=== PATIENT | female | born 1970 | race Caucasian/White ===

== ENCOUNTER 2016-12-22 15:17 | Inpatient (IN) | payer MEDICAID ==
[~2016-12-22] VITALS: Ht 160 cm; Wt 99.0 kg
[2016-12-22 15:20] VITALS: Ht 160 cm; Wt 99.0 kg
[2016-12-22 17:23] LABS: BASOPHILS % 0.1 % (0.0-2.0); EOSINOPHILS # 0.2 10^3/ul (0.0-0.5); EOSINOPHILS % 1.6 % (0.0-7.0); HEMATOCRIT 25.8 % (37.0-47.0); HEMOGLOBIN 7.6 g/dl (12.0-16.0); LYMPHOCYTES # 2.4 10^3/ul (0.8-2.9); LYMPHOCYTES % 22.6 % (15.0-51.0); MEAN CORPUSCULAR HEMOGLOBIN 21.8 pg (29.0-33.0); MEAN CORPUSCULAR HGB CONC 29.5 g/dl (32.0-37.0); MEAN CORPUSCULAR VOLUME 73.9 fl (82.0-101.0); MEAN PLATELET VOLUME 9.4 fl (7.4-10.4); MONOCYTE # 0.5 10^3/ul (0.3-0.9); MONOCYTES % 4.9 % (0.0-11.0); NEUTROPHIL # 7.3 10^3/ul (1.6-7.5); NEUTROPHILS % 70.1 % (39.0-77.0); NUCLEATED RED BLOOD CELLS% 0.2 /100WBC (0.0-0.0); PLATELET COUNT 370 10^3/UL (140-415); RED BLOOD COUNT 3.49 10^6/ul (4.20-5.40); RED CELL DISTRIBUTION WIDTH 16.6 % (11.5-14.5); WHITE BLOOD COUNT 10.4 10^3/ul (4.8-10.8)
--- NOTE | 2016-12-22 17:33 | RADRPT ---
PROCEDURE: US Pelvis CLINICAL INDICATION: Pelvic pain, vaginal bleeding TECHNIQUE: Multiple sonographic images of the pelvis were obtained utilizing a transabdominal and endovaginal technique. The images were reviewed on a PACS workstation. COMPARISON: None. LMP: 10/17/2016 FINDINGS: The uterus measures 12.7 x 6.1 x 9.0 cm. The endometrial echo complex measures 9 mm in thickness. The uterus is heterogeneous and the junctional zone between the endometrium and myometrium is indist inct. No discrete lesion is seen. Bilateral ovaries are not visualized. There are no abnormal adnexal masses. No significant pelvic free fluid is identified. IMPRESSION: The uterus is heterogeneous and the junctional zone between the endometrium and myometrium is indist inct. Clinical correlation for adenomyosis is recommended. Bilateral ovaries are not visualized. There are no abnormal adnexal masses. RPTAT: EE Physician Alexis Date Time Electronically viewed and signed by Physician Alexis on 12/22/2016 17:33 /
[2016-12-22 17:42] LABS: ADD UMIC YES; UR ASCORBIC ACID 40 mg/dL (NEGATIVE); UR BILIRUBIN (Dip) NEGATIVE (NEGATIVE); UR BLOOD (Dip) 3+ mg/dL (NEGATIVE); UR CLARITY SLIGHTLY CLOUDY (CLEAR); UR COLOR YELLOW (YELLOW); UR GLUCOSE (Dip) NEGATIVE (NEGATIVE); UR KETONES (Dip) NEGATIVE (NEGATIVE); UR LEUKOCYTE ESTERASE (Dip) NEGATIVE Leu/ul (NEGATIVE); UR MUCUS FEW /HPF (NONE SEEN); UR NITRITE (Dip) NEGATIVE (NEGATIVE); UR RBC > 182 /HPF (0-5); UR SPECIFIC GRAVITY (Dip) 1.023 (1.003-1.030); UR SQUAMOUS EPITHELIAL CELL FEW /HPF (FEW); UR TOTAL PROTEIN (Dip) 2+ mg/dl (NEGATIVE); UR UROBILINOGEN (Dip) NEGATIVE (NEGATIVE)
[2016-12-22 17:48] LABS: ALBUMIN 4.4 g/dl (3.3-4.9); ALBUMIN/GLOBULIN RATIO 1.29; CALCIUM 9.1 mg/dl (8.4-10.2); CREATININE 0.64 mg/dl (0.44-1.00); POTASSIUM 3.7 mmol/L (3.5-5.1); TOTAL PROTEIN 7.8 g/dl (6.1-8.1)
[2016-12-22] MEDS ORDERED: SOD CHLORIDE 0.9% 1,000 ML IV ONE (19:00)
[2016-12-22] MEDS ORDERED: ACETAMINOPHEN 325 MG TAB PO ONE (19:30)
--- NOTE | 2016-12-22 19:36 | ERD ---
ER Documentation Chief Complaint Chief Complaint vag bleed since september, not HPI This is a 46-year-old female presents to the ER with vaginal bleeding since September. Patient went to [facility] on December 07, 2016 and was put on progesterone. She is also taking iron as she was found to have anemia at that time. Patient is using about 1 package of pads a day, and when she goes out she has to use a tampon and pad, often times having to change her clothes secondary to severe bleeding. Is starting to feel fatigued and weak. ROS 12 point review of systems was done, all negative except per HPI. Allergies Allergies: Coded Allergies: No Known Allergy (Verified Allergy, Unknown, 09/02/09) PMhx/Soc Medical and Surgical Hx: pt denies Medical Hx, pt denies Surgical Hx Physical Exam Vitals Vital Signs Date Time Temp Pulse Resp B/P Pulse Ox O2 Delivery O2 Flow Rate FiO2 12/22/16 15:20 99.1 96 18 154/71 100 Physical Exam GENERAL: The patient is well developed and appropriate for usual state of health , in no apparent distress. HEENT: Atraumatic. CHEST: Clear to auscultation bilaterally. There are no rales, wheezes or rhonchi. HEART: Regular rate and rhythm. No murmurs, clicks, rubs or gallops. ABDOMEN: Soft, nontender and nondistended. Good bowel sounds. No rebound or guarding. No gross peritonitis. No gross organomegaly or masses. No Donohue sign or McBurney point tenderness. NEURO: Alert and oriented. SKIN: There is no apparent rash or petechia. The skin is warm and dry. Result Diagram: 12/22/16 1700 12/22/16 170 Results 24 hrs Laboratory Tests Test 12/22/16 17:00 White Blood Count 10.410^3/ul Red Blood Count 3.4910^6/ul Hemoglobin 7.6g/dl Hematocrit 25.8% Mean Corpuscular Volume 73.9fl Mean Corpuscular Hemoglobin 21.8pg Mean Corpuscular Hemoglobin Concent 29.5g/dl Red Cell Distribution Width 16.6% Platelet Count 19638^3/UL Mean Platelet Volume 9.4fl Neutrophils % 70.1% Lymphocytes % 22.6% Monocytes % 4.9% Eosinophils % 1.6% Basophils % 0.1% Nucleated Red Blood Cells % 0.2/100WBC Neutrophils # 7.310^3/ul Lymphocytes # 2.410^3/ul Monocytes # 0.510^3/ul Eosinophils # 0.210^3/ul Basophils # 0.010^3/ul Nucleated Red Blood Cells # 0.010^3/ul Urine Color YELLOW Urine Clarity SLIGHTLY CLOUDY Urine pH 5.0 Urine Specific [place] 1.023 Urine Ketones NEGATIVEmg/dL Urine Nitrite NEGATIVEmg/dL Urine Bilirubin NEGATIVEmg/dL Urine Urobilinogen NEGATIVEmg/dL Urine Leukocyte Esterase NEGATIVELeu/ul Urine Microscopic RBC > 182/HPF Urine Microscopic WBC 25/HPF Urine Squamous Epithelial Cells FEW/HPF Urine Mucus FEW/HPF Urine Hemoglobin 3+mg/dL Urine Glucose NEGATIVEmg/dL Urine Total Protein 2+mg/dl Sodium Level 144mmol/L Potassium Level 3.7mmol/L Chloride Level 108mmol/L Carbon Dioxide Level 25mmol/L Anion Gap 15 Blood Urea Nitrogen 10mg/dl Creatinine 0.64mg/dl Glucose Level 133mg/dl Calcium Level 9.1mg/dl Total Bilirubin 0.0mg/dl Direct Bilirubin 0.00mg/dl Indirect Bilirubin 0.0mg/dl Aspartate Amino Transf (AST/SGOT) 21IU/L Alanine Aminotransferase (ALT/SGPT) 39IU/L Alkaline Phosphatase 92IU/L Total Protein 7.8g/dl Albumin 4.4g/dl Globulin 3.40g/dl Albumin/Globulin Ratio 1.29 Current Medications Medications (Trade) Dose Ordered Sig/Madelin Route PRN Reason Start Time Stop Time Status Last Admin Dose Admin Sodium Chloride (NS) 1,000 ml @ 1,000 mls/hr Q1H ONCE IV 12/22/16 19:00 12/22/16 19:59 12/22/16 18:53 Acetaminophen (Tylenol Tab) 650 mg ONCE ONCE PO 12/22/16 19:30 12/22/16 19:31 DC 12/22/16 19:31 [place] [id number] Radiology Main Line: [phone] DIAGNOSTIC IMAGING REPORT Patient: AMANDA RAMIREZ : 1970 Age: 46 Sex: F MR #: [id number] DOS: 12/22/16 0000 Ordering MD: TONY HERRERA PA-C Location: [facility] Room/Bed: PROCEDURE: US Pelvis CLINICAL INDICATION: Pelvic pain, vaginal bleeding TECHNIQUE: Multiple sonographic images of the pelvis were obtained utilizing a transabdominal and endovaginal technique. The images were reviewed on a PACS workstation. COMPARISON: None. LMP: 10/17/2016 FINDINGS: The uterus measures 12.7 x 6.1 x 9.0 cm. The endometrial echo complex measures 9 mm in thickness. The uterus is heterogeneous and the junctional zone between the endometrium and myometrium is indistinct. No discrete lesion is seen. Bilateral ovaries are not visualized. There are no abnormal adnexal masses. No significant pelvic free fluid is identified. IMPRESSION: The uterus is heterogeneous and the junctional zone between the endometrium and myometrium is indistinct. Clinical correlation for adenomyosis is recommended. Bilateral ovaries are not visualized. There are no abnormal adnexal masses. RPTAT: EE Physician Alexis Date Time Electronically viewed and signed by Physician Alexis on 12/22/2016 17:33 RA/ CC: TONY HERRERA Procedures/MDM This is a 46-year-old female presents to the ER with vaginal bleeding since September. This case was discussed with my supervising physician Dr. Daley. Patient's hemoglobin is 7.6, which is very close to transfusion, considering patient does feel weak and has continued to have bleeding even with pedestrian use, will Laborist crushed stone grader was consulted. Per Dr. Mario patient would benefit from admission for D&C. Departure Diagnosis: Primary Impression: Vaginal bleeding Additional Impression: Anemia Condition: Stable TONY HERRERA Dec 22, 2016 19:36
[2016-12-22] MEDS ORDERED: ONDANSETRON 4 MG INJ IV STA (19:57)
[2016-12-22 20:00] VITALS: TEMP 98.3
[2016-12-22 20:00] LABS: BASOPHILS % 0.2 % (0.0-2.0); EOSINOPHILS # 0.2 10^3/ul (0.0-0.5); EOSINOPHILS % 1.7 % (0.0-7.0); HEMATOCRIT 24.2 % (37.0-47.0); HEMOGLOBIN 7.2 g/dl (12.0-16.0); LYMPHOCYTES # 2.9 10^3/ul (0.8-2.9); LYMPHOCYTES % 28.7 % (15.0-51.0); MEAN CORPUSCULAR HEMOGLOBIN 22.2 pg (29.0-33.0); MEAN CORPUSCULAR HGB CONC 29.8 g/dl (32.0-37.0); MEAN CORPUSCULAR VOLUME 74.5 fl (82.0-101.0); MEAN PLATELET VOLUME 9.4 fl (7.4-10.4); MONOCYTE # 0.5 10^3/ul (0.3-0.9); NEUTROPHIL # 6.5 10^3/ul (1.6-7.5); PLATELET COUNT 357 10^3/UL (140-415); RED BLOOD COUNT 3.25 10^6/ul (4.20-5.40); RED CELL DISTRIBUTION WIDTH 16.8 % (11.5-14.5); WHITE BLOOD COUNT 10.2 10^3/ul (4.8-10.8)
[2016-12-22 20:18] LABS: INR 1.12; PROTIME 14.4 Sec (12.2-14.2); PT RATIO 1.1
[2016-12-22 20:19] LABS: PARTIAL THROMBOPLASTIN TIME 26.8 Sec (25.0-35.0)
[2016-12-22] MEDS ORDERED: MEDR10TA50 PO (20:51)
[2016-12-22] MEDS ORDERED: FER325 PO (20:52)
[2016-12-22 22:22] VITALS: BP 147/71; RESP 21
[2016-12-22] MEDS ORDERED: ACETAMINOPHEN 325 MG TAB PO PRN (22:30)
[2016-12-22] MEDS: SOD CHLORIDE 0.45% 1,000 ML IV SCH (22:53)
[2016-12-22 23:40] VITALS: BP 114/54; PULSE 67; RESP 18
[2016-12-22 23:55] VITALS: BP 117/57; PULSE 68; RESP 18
[2016-12-23] VITALS (14 sets, daily range): BP systolic 118–132; BP diastolic 54–62; PULSE 62–69; RESP 18–22
--- NOTE | 2016-12-23 09:04 | CONS ---
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 at ER bleeding was profuse , admitted for blood transfusion and hysteroscopy and D&C prolonged vaginal bleeding Constitutional: improved, no complaints Eyes: no complaints ENT: no complaints Respiratory: no complaints Cardiovascular: no complaints Gastrointestinal: no complaints Genitourinary: bleeding, no complaints Musculoskeletal: back pain, no complaints Skin: no complaints Neurologic: no complaints Endocrine: no complaints, polyuria Lymphatic: no complaints Psychological: nl mood/affect, no complaints Immunologic: no complaints Past Medical History Medical History: no pertinent history Past Surgical History X3 X2 C/S x2 SAB( 3mo, 2mo) BTL Family History Significant Family History: no pertinent family hx Social History Alcohol Use: none Smoking Status: Current every day smoker Drug Use: none Exam/Review of Systems Vital Signs Vitals Vital Signs Date Time Temp Pulse Resp B/P Pulse Ox O2 Delivery O2 Flow Rate FiO2 12/23/16 07:55 98.0 67 18 118/57 98 12/22/16 21:54 Room Air Intake and Output 12/22/16 12/22/16 12/23/16 15:00 23:00 07:00 Intake Total 1000 ml 1100 ml Balance 1000 ml 1100 ml Exam Constitutional: alert, oriented, well developed Psych: nl mood/affect, no complaints Head: atraumatic, normocephalic Eyes: EOMI, PERRL, fundi, disc, icteric, nl conjunctiva (pale), nl lids, nl sclera, other ENMT: nl external ears & nose, nl lips & teeth, nl nasal mucosa & septum Neck: non-tender, supple Respiratory: clear to auscultation, normal air movement Cardiovascular: nl pulses, regular rate and rhythm Gastrointestinal: nl liver, spleen, non-tender, soft Musculoskeletal: nl extremities to inspection, nl gait and stance Extremities: normal pulses Neurological: PAINTER HELPER SPRAY II-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7 Monocytes % 4.9 5.0 Eosinophils % 1.6 1.7 Basophils % 0.1 0.2 Nucleated Red Blood Cells % 0.2 H 0.0 Neutrophils # 7.3 6.5 Lymphocytes # 2.4 2.9 Monocytes # 0.5 0.5 Eosinophils # 0.2 0.2 Basophils # 0.0 0.0 Nucleated Red Blood Cells # 0.0 0.0 Urine Color YELLOW Urine Clarity SLIGHTLY CLOUDY A Urine pH 5.0 Urine Specific [place] 1.023 Urine Ketones NEGATIVE Urine Nitrite NEGATIVE Urine Bilirubin NEGATIVE Urine Urobilinogen NEGATIVE Urine Leukocyte Esterase NEGATIVE Urine Microscopic RBC > 182 H Urine Microscopic WBC 25 H Urine Squamous Epithelial Cells FEW Urine Mucus FEW A Urine Hemoglobin 3+ H Urine Glucose NEGATIVE Urine Total Protein 2+ H Sodium Level 144 Potassium Level 3.7 Chloride Level 108 Carbon Dioxide Level 25 Anion Gap 15 Blood Urea Nitrogen 10 Creatinine 0.64 Glucose Level 133 Calcium Level 9.1 Total Bilirubin 0.0 L Direct Bilirubin 0.00 Indirect Bilirubin 0.0 Aspartate Amino Transf (AST/SGOT) 21 Alanine Aminotransferase (ALT/SGPT) 39 Alkaline Phosphatase 92 Total Protein 7.8 Albumin 4.4 Globulin 3.40 H Albumin/Globulin Ratio 1.29 Prothrombin Time 14.4 H Prothrombin Time Ratio 1.1 INR International Normalized Ratio 1.12 Activated Partial Thromboplast Time 26.8 Medications Medications Current Medications Sodium Chloride (1/2 NS) 1,000 ml @ 100 mls/hr Q10H IV Last administered on t 22:53; Admin Dose 100 MLS/HR; Start 12/22/16 at 22:30 Acetaminophen (Tylenol Tab) 650 mg Q4H PRN PO PAIN AND OR ELEVATED TEMP; Start 12/22/16 at 22:30 JACQUELINE MENDEZ MD Dec 23, 2016 09:01
[2016-12-23 09:15] LABS: BASOPHILS % 0.3 % (0.0-2.0); EOSINOPHILS # 0.2 10^3/ul (0.0-0.5); EOSINOPHILS % 2.1 % (0.0-7.0); HEMATOCRIT 32.4 % (37.0-47.0); HEMOGLOBIN 9.6 g/dl (12.0-16.0); LYMPHOCYTES # 2.4 10^3/ul (0.8-2.9); MEAN CORPUSCULAR HEMOGLOBIN 22.4 pg (29.0-33.0); MEAN CORPUSCULAR HGB CONC 29.6 g/dl (32.0-37.0); MEAN CORPUSCULAR VOLUME 75.7 fl (82.0-101.0); MEAN PLATELET VOLUME 9.5 fl (7.4-10.4); MONOCYTE # 0.5 10^3/ul (0.3-0.9); MONOCYTES % 5.4 % (0.0-11.0); NEUTROPHIL # 5.4 10^3/ul (1.6-7.5); NEUTROPHILS % 63.4 % (39.0-77.0); NUCLEATED RED BLOOD CELLS% 0.5 /100WBC (0.0-0.0); PLATELET COUNT 328 10^3/UL (140-415); RED BLOOD COUNT 4.28 10^6/ul (4.20-5.40); RED CELL DISTRIBUTION WIDTH 16.9 % (11.5-14.5); WHITE BLOOD COUNT 8.6 10^3/ul (4.8-10.8)
[2016-12-23] MEDS: SOD CHLORIDE 0.45% 1,000 ML IV SCH ×2 (10:40→16:52)
[2016-12-24] VITALS (15 sets, daily range): BP systolic 107–133; BP diastolic 53–67; PULSE 54–75; RESP 15–25
[2016-12-24] MEDS: SOD CHLORIDE 0.45% 1,000 ML IV SCH ×2 (02:40→14:30)
[2016-12-24] MEDS ORDERED: CEFAZOLIN 1 GM INJ ONE (07:00)
[2016-12-24] MEDS ORDERED: ROCURONIUM 50 MG INJ ONE (08:24)
[2016-12-24] MEDS ORDERED: SUGAMMADEX SODIUM 200 MG/2 ML VIAL IV ONE (08:24)
[2016-12-24] MEDS ORDERED: FENTAnyl 50 MCG/ML VIAL ONE (08:24)
[2016-12-24] MEDS ORDERED: SUCCINYLCHOLINE CHLORIDE 100 MG/5 ML SYG IV ONE (08:24)
[2016-12-24] MEDS ORDERED: LIDOCAINE 2% (SDV) 5 ML INJ ONE (08:24)
[2016-12-24] MEDS ORDERED: PROPOFOL 20 ML ONE (08:24)
[2016-12-24] MEDS ORDERED: HYDROmorphONE (0.2 MG/ML) 10ML SYG IV PRN ×2 (09:00)
[2016-12-24] MEDS ORDERED: DIPHENHYDRAMINE 50 MG INJ IV PRN (09:00)
[2016-12-24] MEDS ORDERED: FENTAnyl 50 MCG/ML VIAL IV PRN ×2 (09:00)
[2016-12-24] MEDS ORDERED: MEPERIDINE 25 MG INJ IV PRN (09:00)
--- NOTE | 2016-12-24 09:55 | SIPON ---
Date/Time of Note Date/Time of Note DATE: 12/24/16 TIME: 09:48 Operative Report Preoperative Diagnosis abnormal uterine bleeding Postoperative Diagnosis see pathologic report Operation/Procedure Performed hysteroscopy ecc emc Surgeon see signature line recreational assistant Blayne ([place]) Anesthesia: general Estimated blood loss: minimal Transfusion Required none Specimen ECC EMC Grafts/Implants none Complications none JACQUELINE MENDEZ MD Dec 24, 2016 09:55
--- NOTE | 2016-12-24 10:07 | PD.PPDC ---
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
[2016-12-24 10:57] LABS: BASOPHILS % 0.1 % (0.0-2.0); EOSINOPHILS # 0.1 10^3/ul (0.0-0.5); EOSINOPHILS % 1.6 % (0.0-7.0); HEMATOCRIT 30.7 % (37.0-47.0); HEMOGLOBIN 9.5 g/dl (12.0-16.0); LYMPHOCYTES # 1.6 10^3/ul (0.8-2.9); LYMPHOCYTES % 19.3 % (15.0-51.0); MEAN CORPUSCULAR HEMOGLOBIN 23.4 pg (29.0-33.0); MEAN CORPUSCULAR HGB CONC 30.9 g/dl (32.0-37.0); MEAN CORPUSCULAR VOLUME 75.6 fl (82.0-101.0); MEAN PLATELET VOLUME 8.9 fl (7.4-10.4); MONOCYTE # 0.4 10^3/ul (0.3-0.9); MONOCYTES % 4.3 % (0.0-11.0); NEUTROPHIL # 6.1 10^3/ul (1.6-7.5); NEUTROPHILS % 74.1 % (39.0-77.0); PLATELET COUNT 294 10^3/UL (140-415); RED BLOOD COUNT 4.06 10^6/ul (4.20-5.40); RED CELL DISTRIBUTION WIDTH 16.9 % (11.5-14.5); WHITE BLOOD COUNT 8.2 10^3/ul (4.8-10.8)
--- NOTE | 2016-12-26 07:09 | OPR ---
DATE OF OPERATION: 12/24/2016 PREOPERATIVE DIAGNOSIS: Abnormal uterine bleeding. POSTOPERATIVE DIAGNOSIS: Abnormal uterine bleeding. See pathological report. Enlarged uterus. OPERATION PERFORMED: Hysteroscopy and dilatation and curettage. ANESTHESIA: General. ANESTHESIOLOGIST: Dr. Orellana. SURGEON: Rona Mario MD MILL DRESSER: javon Cisneros. ESTIMATED BLOOD LOSS: Minimal, less than 10 mL. PROCEDURE: Under appropriate induction of general anesthesia, the patient was placed in dorsal lith otomy position. The perineal area and vaginal wall was prepped and draped in usual aseptic manner. On inspection, external genitalia revealed no gross abnormality, and on bimanual examination, uteru s felt to be approximately 10 weeks of gestational size in form and consistency. There was no palpa ble adnexal pathology. Uterine surface was smooth. Weighted speculum introduced, the cervix identi fied, which was clear and parous-appearing. Anterior lip of the cervix was grasped with a single to oth tenaculum, and endocervical curettage was performed with obtaining scanty tissue which was sent separately. Cavity was sounded, which was 10 cm in depth and the os was patent, no resistance to th e size of hysteroscope which was introduced, which was connected to the normal saline with the usual preparation and the cavity was visualized and there was an area that denuded and also hyperplastic appearing but no polypoid tissue or any submucous fibroid noted. There was like a ridge appearing b ut it was not clear. It was in the upper portion of the uterus like a septum, but it is not really clearly verified with a septum. After the hysteroscope was done and the endometrial curettage was o btained, a lot of blood with a small amount of ____ endometrial tissue obtained, in the middle where the hysteroscopic finding was like a ridge, it felt on the uterine curettage in the middle upper po rtion, but it was a very minor irregularity. It was linear. All directions of the curettage was don e multiple times because of all the blood clots, which were curetted and actual endometrial tissue o f a moderate amount was collected from multiple ____. After the procedure was done and the cavity wa s ____ with the hysteroscope and appeared to be curetted in all directions. No excess bleeding note d. It was only less than 10 mL and instruments all removed with the hysteroscope and the patient wa s sent to the recovery room in stable condition. All sponge count was correct. Dictated By: RONA DYER/CHARLENE Conf#: [id number] DID#: [id number]
== END 2016-12-24 18:45 | disposition home or self-care (01) | DRG 745 ==
LOC: FTE 15:17 → MS1 19:50
PROVIDERS: ADMIT Obstetrics & Gynecology; ATTEND Obstetrics & Gynecology
PROC: 30233N1 Transfusion of Nonautologous Red Blood Cells into Peripheral Vein, Percutaneous Approach (ICD-10-PCS; principal; 2016-12-22)
PROC: 0UDB8ZX Extraction of Endometrium, Via Natural or Artificial Opening Endoscopic, Diagnostic (ICD-10-PCS; 2016-12-24)
DX: N93.9 Abnormal uterine and vaginal bleeding, unspecified (principal); E66.01 Morbid (severe) obesity due to excess calories; N85.2 Hypertrophy of uterus; D64.9 Anemia, unspecified; Z72.0 Tobacco use; Z68.38 Body mass index [BMI] 38.0-38.9, adult
CPT/HCPCS: 36430; 76830; 76856; 80053; 81001; 85025; 85610; 85730; 86850; 86900; 86901; 86920; 88305; J0690; J2405; J3010; J7030; P9016

== ENCOUNTER 2017-09-05 18:33 | Emergency (ER) | END 2017-09-05 23:58 | disposition home or self-care (01) ==